=== PATIENT | female | born 1970 | race Asian ===

== ENCOUNTER 2021-01-13 10:31 | Day surgery (SDC) | payer OTHER, SELFPAY ==
[~2021-01-13] VITALS: Ht 160 cm; Wt 59.0 kg
[2021-01-13] MEDS ORDERED: diphenhydrAMINE 50 MG/ML VIAL ONE (12:30)
[2021-01-13] MEDS ORDERED: MIDAZOLAM 5 MG/5 ML VIAL ONE (12:30)
[2021-01-13] MEDS ORDERED: fentaNYL citrate 0.05 MG/ML VIAL ONE (12:30)
[2021-01-13] MEDS ORDERED: fentaNYL citrate 0.05 MG/ML VIAL IVP ONE (13:25)
[2021-01-13] MEDS ORDERED: MIDAZOLAM 2 MG/2 ML VIAL IVP ONE (13:25)
== END 2021-01-13 13:34 | disposition home or self-care (01) ==
LOC: MMU 10:31 → MDS 10:31
PROVIDERS: ATTEND Internal Medicine Gastroenterology
DX: R13.10 Dysphagia, unspecified (principal); K21.00 Gastro-esophageal reflux disease with esophagitis, without bleeding; Z20.828 Contact with and (suspected) exposure to other viral communicable diseases; Z79.899 Other long term (current) drug therapy
CPT/HCPCS: 43239; 81025; 88305; 88312; 88313; 88342; J2250; J3010; U0003; J1200